=== PATIENT | female | born 1980 | race Caucasian/White ===

== ENCOUNTER 2017-05-22 07:45 | Day surgery (SDC) | payer OTHER ==
[~2017-05-22] VITALS: Ht 152.4 cm; Wt 49.0 kg
[~2017-05-22 07:45] MED LIST: CYCLOBENZAPRINE5 MG PO; DICLOFENAC POTA50 MG PO; TRAMADOL HCL50 MG PO; ZOLOFT100 MG PO; ZOVIRAX400 MG PO
[2017-05-22] MEDS ORDERED: NORCO 5-325 TA1 EACH PO (11:40)
--- NOTE | 2017-05-27 07:08 | OR ---
[facility] [address], [place] [address] Signed DATE OF PROCEDURE: 05/22/17 PREOPERATIVE DIAGNOSIS: Medial meniscal tear, recurrent, right knee. POSTOPERATIVE DIAGNOSIS: Medial meniscal tear, recurrent, right knee. PROCEDURE Right knee arthroscopy with partial medial meniscectomy incidentally noted with a small chondral fracture of the weightbearing portion of the medial femoral condyle. SURGEON: Tejas Bain MD. ANESTHESIA: General. SPECIMENS: None. COMPLICATIONS: None. TOURNIQUET TIME: About 15 minutes. PROCEDURE: Patient was taken to the operating room. After anesthesia was induced and airway secured, the right lower extremity was positioned, prepped and draped in a routine sterile fashion. The arthroscope was inserted through the standard anterolateral portal. Using transillumination and localization with a spinal needle, an anteromedial portal was created. The nerve hook was introduced. The suprapatellar pouch was unremarkable as was the patellofemoral joint. The medial recess was pristine. The medial compartment revealed a small chondral fracture off the posterior lateral aspect of the weightbearing portion of the medial femoral condyle. There was also a small vertical tear in the medial meniscus posteriorly. A small basket forcep was introduced and used to complete the meniscal tear. The edges of the meniscectomy were then trimmed with a motorized shaver. The intercondylar notch was unremarkable as was the lateral compartment and the lateral recess. The knee was copiously irrigated and drained. The portals were closed, and sterile dressing yadira lied. The patient was awakened and taken to the recovery room where she arrived in stable condition. Counts were correct and antibiotic protocols were followed. Tejas Bain MD Electronically Signed By: TEJAS BAIN MD 05/27/17 0708 PATIENT NAME: ISAÍAS CANELA OPERATIVE REPORT DATE OF : 82 PHYSICIAN: TEJAS BAIN MD REPORT #: [id number] REPORT IS CONFIDENTIAL AND NOT TO BE RELEASED WITHOUT AUTHORIZATION [address] [place] [address] Signed WFB/Modl /[id number] cc: Vik Michael DC Electronically Signed By: TEJAS BAIN MD 05/27/17 0708 PATIENT NAME: ISAÍAS CANELA OPERATIVE REPORT DATE OF : 82 PHYSICIAN: TEJAS BAIN MD REPORT #: [id number] REPORT IS CONFIDENTIAL AND NOT TO BE RELEASED WITHOUT AUTHORIZATION
== END 2017-05-22 12:25 | disposition home or self-care (01) ==
LOC: OPS 07:45 → DS 07:45 → OPS 10:30
PROVIDERS: Orthopaedic Surgery
PROC: 0SBC4ZZ Excision of Right Knee Joint, Percutaneous Endoscopic Approach (ICD-10-PCS; principal; 2017-05-22 10:30)
DX: M23.203 Derangement of unspecified medial meniscus due to old tear or injury, right knee (principal); S72.431A Displaced fracture of medial condyle of right femur, initial encounter for closed fracture; Z91.040 Latex allergy status; Z88.8 Allergy status to other drugs, medicaments and biological substances; X58.XXXA Exposure to other specified factors, initial encounter
CPT/HCPCS: 01400; J0690; J1100; J1885; J2250; J2270; J2405; J3010; J7120